=== PATIENT | male | born 1955 | race Caucasian/White ===

== ENCOUNTER 2017-10-18 07:46 | Day surgery (SDC) | payer BC ==
[2017-10-12 10:55] VITALS: BMI 31.8
[~2017-10-18 07:46] MED LIST: LACTATED RINGERS 1,000 ML IV SCH; LIDOCAINE 1% 20 ML VIAL (10MG/ML) FOR IV START INTRADERMA PRN; SODIUM CHLORIDE 0.9% 1,000 ML IV SCH; ceFAZolin 1,000 MG in SODIUM CHLORIDE 0.9% IRRIGATIO 250 ML IRRIGATION ONE; ceFAZolin IN SWFI 2 GM/20 ML SYRINGE IVP ONE
[2017-10-18 09:06] LABS: Glucose,Whole Blood 106 mg/dL (75-99)
[2017-10-18] MEDS ORDERED: PROPOFOL 10 MG/ML 20 ML VIAL IV ONE (09:46)
[2017-10-18] MEDS ORDERED: fentaNYL (PF) 50 MCG/ML 2 ML AMP ONE (09:46)
[2017-10-18] MEDS ORDERED: MIDAZOLAM 2 MG/2 ML VIAL ONE (09:46)
[2017-10-18] MEDS ORDERED: LIDOCAINE 1% INJ 10MG/ML (20 ML MDV) ONE ×3 (09:46→10:11)
[2017-10-18] MEDS ORDERED: SODIUM CHLORIDE 0.9% 500 ML IV ONE (10:01)
[2017-10-18] MEDS ORDERED: ceFAZolin IN SWFI 2 GM/20 ML SYRINGE IVP ONE (10:17)
[2017-10-18] MEDS ORDERED: LIDOCAINE 1% INJ 10MG/ML (20 ML MDV) SQ ONE (10:27)
[2017-10-18] MEDS ORDERED: HYDROcodone/APAP 5-325MG 1 EACH TAB PO PRN (11:22)
[2017-10-18] MEDS ORDERED: ACETAMINOPHEN TAB 325 MG TAB PO PRN (11:22)
--- NOTE | 2017-10-18 12:06 | CE ---
CARDIAC ELECTROPHYSIOLOGY REPORT Mr. Lewis is a 62-year-old male patient with a history of ischemic cardiomyopathy and class 2 heart failure, ventricular tachycardia, left bundle branch block who has a biventricular ICD implanted. He has class 2 CHF. His biventricular ICD is at [facility] and he was brought in for an ICD generator change. Patient was brought to the EP lab in a fasting state. Written informed consent was obtained prior to the procedure. The left shoulder area was prepped and draped as per protocol and 1% lidocaine used for local anesthesia. A 4 cm incision was made over the generator and carried down to the level of the generator. The generator was explanted and a new generator was implanted leads were interrogated. The explanted generator was a [employer] model #3231-40, serial #[id number]. The new generator implanted was a [employer] model #TH2655-09X, serial #[id number]. The leads were interrogated and functioning normally. DFT testing was performed. This DC shock was used to induce ventricular fibrillation. This was adequately and appropriately detected at least sensitivity and successfully internally defibrillated with a 20 joule shock. A 10 joule shock was unsuccessful. Charge time 1.6 seconds. Shock impedance 76 ohms. No post shock noise. The device was then programmed to biventricular pacing with short AV delay with MADIT- RIT programming. RESULTS: 1. Successful biventricular ICD generator change. 2. DFT at 20 joules, , SVC off. MMODL / IJN: [id number] /
[2017-10-18] MEDS ORDERED: ACETAMINOPHEN IV (For NPO) 1,000 MG in EMPTY BAG 1 BAG IVPB ONE (15:30)
[2017-10-18] MEDS: ceFAZolin IN SWFI 2 GM/20 ML SYRINGE IVP SCH ×2 (16:48→21:08)
[2017-10-18 17:29] LABS: Glucose,Whole Blood 95 mg/dL (75-99)
[2017-10-18] MEDS: metFORMIN 500 MG TAB PO SCH (18:40)
[2017-10-18] MEDS: CARVEDILOL 12.5 MG TAB PO SCH (18:40)
[2017-10-18 19:38] VITALS: RESP 16
[2017-10-18 20:04] LABS: Glucose,Whole Blood 119 mg/dL (75-99)
[2017-10-18] MEDS ORDERED: ATORVASTATIN 20 MG TAB PO SCH (21:00)
[2017-10-18] MEDS: SACUBITRIL/VALSARTAN 49 MG-51 MG TABLET PO SCH (21:07)
[2017-10-19] MEDS: ceFAZolin IN SWFI 2 GM/20 ML SYRINGE IVP SCH ×2 (03:24→10:20)
[2017-10-19 06:38] LABS: Glucose,Whole Blood 105 mg/dL (75-99)
[2017-10-19 07:47] VITALS: BP 123/75; PULSE 69; TEMP 98.3
[2017-10-19] MEDS: SACUBITRIL/VALSARTAN 49 MG-51 MG TABLET PO SCH (07:55)
[2017-10-19] MEDS: CARVEDILOL 12.5 MG TAB PO SCH (07:55)
[2017-10-19] MEDS: metFORMIN 500 MG TAB PO SCH (07:55)
--- NOTE | 2017-10-19 08:06 | P.DS ---
Providers Attending physician: Desean Tapia Primary care physician: Awilda Nadir [facility] Course: Patient is doing well denies any chest discomfort palpitations dizziness lightheadedness. Minimal soakage in the dressing status post biventricular ICD generator change Is afebrile 98.3F pulse rate is in the 60s and 70s blood pressure 123/75 mmHg Heart sounds are normal normal S1 normal S2 no murmurs no gallops no rub Abdomen soft Chest examination auscultation is normal no edema in the lower extremity Impression Sepsis protocol has degenerative change for normal battery depletion Underlying left bundle branch block ischemic cardio myopathy class II CHF Plan is to discharge home after completion of IV antibiotics and follow-up in the office in 5 days in the device clinic and follow-up with me in about 4 months no changes in medications Patient Condition at Discharge: Stable Plan - Discharge Summary Discharge Rx Participant: Yes New Discharge Prescriptions: Continue metFORMIN HCL [Glucophage] 500 mg PO BID Carvedilol [Coreg*] 18.75 mg PO BID Spironolactone [Aldactone] 12.5 mg PO DAILY Simvastatin [Zocor] 40 mg PO HS Aspirin 325 mg PO DAILY Sacubitril/Valsartan [Entresto 49 mg-51 mg Tablet] 1 each PO BID Discharge Medication List Aspirin 325 mg PO DAILY 09/18/14 [History] Carvedilol [Coreg*] 18.75 mg PO BID 09/18/14 [History] Simvastatin [Zocor] 40 mg PO HS 09/18/14 [History] Spironolactone [Aldactone] 12.5 mg PO DAILY 09/18/14 [History] metFORMIN HCL [Glucophage] 500 mg PO BID 09/18/14 [History] Sacubitril/Valsartan [Entresto 49 mg-51 mg Tablet] 1 each PO BID 10/12/17 [ History] Follow up Appointment(s)/Referral(s): Desean Tapia MD [STAFF PHYSICIAN] - 1 Week (ICD clinic follow-up in [address] Poe in 4 months or as previously scheduled) Activity/Diet/Wound Care/Special Instructions: PATIENT EDUCATION MATERIAL Instructions following a heart rhythm device implant. 1. Keep dressing DRY for 5 DAYS. You may cover the area with Saran or Cling Wrap, prior to a shower. 2. The dressing will be removed in the Device Clinic at [facility]. Absorbable sutures were used to close the wound. 3. Avoid raising the left arm above the shoulder level. 1 week restriction 4. Avoid arm movements, like backscratching, rubbing the head, or pulling on a cord. 2 weeks restriction 5. Gentle range of motion movements of the shoulder, closest to the incision should be performed to avoid a frozen shoulder. (Pendulum exercises of the shoulder) 6. The opposite arm may be used freely. 7. Avoid driving for 7 days. 8. Avoid activities such as golfing, swimming, weed whacking, lifting more than 10 pounds weight, bowling, gymnastics and weight training/lifting. (6 weeks restriction) 9. Activities such as wood chopping with an axe, pull-ups in the gymnasium, power lifting, arc-welding, being close to home induction cooktops will always be a problem. 10. Arm sling is only a reminder not to raise the arm above the head. You do not need to keep the arm completely immobilized. Your free to move the arm and use it and for normal activities. In case of any problems, please call [facility], Amanda Dong, @ [phone], Attention: Device Clinic Device clinic follow-up in 5 days Follow-up with Dr. Poe in 4 months Discharge home after completion of IV antibiotics Discharge Disposition: HOME SELF-CARE
[2017-10-19] MEDS ORDERED: ASPIRIN 325 MG TAB PO SCH (09:00)
[2017-10-19] MEDS ORDERED: SPIRONOLACTONE 25 MG TAB PO SCH (09:00)
--- NOTE | 2017-10-19 11:31 | ECHOF ---
Referral Reason:Generator change MEASUREMENTS -------- HEIGHT: 175.3 cm WEIGHT: 98.0 kg BP: 139/80 RVIDd: 2.9 cm (< 3.3) IVSd: 1.3 cm (0.6 - 1.1) LVIDd: 5.5 cm (3.9 - 5.3) LVPWd: 1.3 cm (0.6 - 1.1) IVSs: 1.5 cm LVIDs: 3.0 cm LVPWs: 1.7 cm LA Diam: 3.4 cm (2.7 - 3.8) LAESV Index (A-L): 18.99 ml/m Ao Diam: 3.9 cm (2.0 - 3.7) AV Cusp: 2.5 cm (1.5 - 2.6) MV EXCURSION: 13.536 mm (> 18.000) MV EF SLOPE: 67 mm/s (70 - 150) EPSS: 0.7 cm MV E Tello: 0.86 m/s MV DecT: 170 ms MV A Tello: 0.74 m/s MV E/A Ratio: 1.17 AR PHT: 1000 ms RAP: 5.00 mmHg RVSP: 25.25 mmHg FINDINGS -------- Sinus rhythm. This was a technically good study. The left ventricular size is normal. There is mild concentric left ventricular hypertrophy. Overa ll left ventricular systolic function is normal with, an EF between 55 - 60 %. The right ventricle is normal in size. Normal LA size by volume 22+/-6 ml/m2. The right atrium is normal in size. Trace to mild aortic regurgitation. The mitral valve is normal. Mild tricuspid regurgitation present. Right ventricular systolic pressure is normal at < 35 mmHg. Trace/mild (physiologic) pulmonic regurgitation. The aortic root is dilated measuring 3.9cm. Normal inferior vena cava with normal inspiratory collapse consistent with estimated right atrial pre ssure of 5 mmHg. The inferior vena cava is mildly dilated. There is no pericardial effusion. CONCLUSIONS -------- 1. Sinus rhythm. 2. This was a technically good study. 3. The left ventricular size is normal. 4. There is mild concentric left ventricular hypertrophy. 5. Overall left ventricular systolic function is normal with, an EF between 55 - 60 %. 6. The right ventricle is normal in size. 7. Normal LA size by volume 22+/-6 ml/m2. 8. The right atrium is normal in size. 9. Trace to mild aortic regurgitation. 10. The mitral valve is normal. 11. Mild tricuspid regurgitation present. 12. Right ventricular systolic pressure is normal at < 35 mmHg. 13. Trace/mild (physiologic) pulmonic regurgitation. 14. The aortic root is dilated measuring 3.9cm. 15. Normal inferior vena cava with normal inspiratory collapse consistent with estimated right atrial pressure of 5 mmHg. 16. The inferior vena cava is mildly dilated. 17. There is no pericardial effusion. [employer] WORKING SUPERVISOR: Heather Archer RDCS
== END 2017-10-19 10:42 | disposition home or self-care (01) ==
LOC: CATHEP 07:46 → 3OBS 11:27 → CATHEP 10-19 10:42
PROVIDERS: ATTEND Internal Medicine Clinical Cardiac Electrophysiology
DX: I25.5 Ischemic cardiomyopathy (principal); Z45.02 Encounter for adjustment and management of automatic implantable cardiac defibrillator; I08.2 Rheumatic disorders of both aortic and tricuspid valves; I47.2 Ventricular tachycardia; I44.7 Left bundle-branch block, unspecified; I25.10 Atherosclerotic heart disease of native coronary artery without angina pectoris; I11.0 Hypertensive heart disease with heart failure; I50.9 Heart failure, unspecified; F17.210 Nicotine dependence, cigarettes, uncomplicated; I71.2 Thoracic aortic aneurysm, without rupture; E78.5 Hyperlipidemia, unspecified; E11.9 Type 2 diabetes mellitus without complications; I25.2 Old myocardial infarction; Z79.84 Long term (current) use of oral hypoglycemic drugs; Z79.82 Long term (current) use of aspirin; Z79.899 Other long term (current) drug therapy
CPT/HCPCS: 93306; 93641; 33264; C1882; J0690 ×3; J2001

== ENCOUNTER 2020-06-01 16:29 | Emergency (ER) | payer BC, MEDICARE ==
[2020-06-01] MEDS ORDERED: SODIUM CHLORIDE 0.9% 500 ML 500 ML IV ONE (16:57)
[2020-06-01] MEDS ORDERED: ACETAMINOPHEN TAB 325 MG TAB PO STA (16:57)
--- NOTE | 2020-06-01 17:10 | XR ---
EXAMINATION TYPE: XR chest 1V portable DATE OF EXAM: 06/01/2020 COMPARISON: 04/14/2010 HISTORY: Short of breath TECHNIQUE: Elvie view FINDINGS: Heart size is normal. There is slight increased interstitial density in the lower lung fiel ds. There is no heart failure. There is left axillary pacemaker. Bony thorax is intact. Thoracic aort a is atheromatous. IMPRESSION: Slight increased interstitial density in the lower lung manning. No heart failure or pulmo nary consolidation.
[2020-06-01 17:31] LABS: Basophils % (A) 1 %; Eosinophils % (A) 0 %; HCT 41.5 % (39.0-53.0); HGB 14.6 gm/dL (13.0-17.5); Lymphocytes # (A) 0.7 k/uL (1.0-4.8); Lymphocytes % (A) 21 %; MCH 28.8 pg (25.0-35.0); MCHC 35.1 g/dL (31.0-37.0); MCV 82.1 fL (80.0-100.0); Mean Platelet Volume 7.1; Monocytes # (A) 0.2 k/uL (0-1.0); Monocytes % (A) 7 %; Neutrophils # (A) 2.2 k/uL (1.3-7.7); Neutrophils % (A) 69 %; Platelet Count 127 k/uL (150-450); RBC 5.05 m/uL (4.30-5.90); RDW 13.4 % (11.5-15.5); WBC 3.2 k/uL (3.8-10.6)
[2020-06-01 17:39] LABS: ALT 18 U/L (4-49); AST 30 U/L (17-59); African American GFR (CKD) >90 (>60 ml/min/1.73 sqM); Alkaline Phosphatase 37 U/L (38-126); Anion Gap 10 mmol/L; Blood Urea Nitrogen 22 mg/dL (9-20); Calcium 8.9 mg/dL (8.4-10.2); Carbon Dioxide 26 mmol/L (22-30); Chloride 102 mmol/L (98-107); Glucose 104 mg/dL (74-99); Non-African American GFR(CKD) 84 (>60 ml/min/1.73 sqM); Potassium 4.7 mmol/L (3.5-5.1); Sodium 138 mmol/L (137-145); Total Bilirubin 0.7 mg/dL (0.2-1.3); Total Protein 7.2 g/dL (6.3-8.2)
--- NOTE | 2020-06-01 17:41 | ED ---
URI HPI - General Source: patient Mode of arrival: ambulatory Limitations: no limitations <Gavi Ruggiero - Last Filed: 06/04/20 06:18> <Karen Kimball - Last Filed: 06/05/20 07:31> - General Chief Complaint: Upper Respiratory Infection Stated Complaint: Cough, Covid+ Time Seen by Provider: 06/01/20 16:37 - History of Present Illness Initial Comments: 65-year-old male presenting today for chief complaint of cough, fatigue and body aches on and off fevers. Patient states that he has had some nasal congestion a nd upper respiratory symptoms since May 16. He states last 10 days he has had worsening symptoms he states that he has profound cough, fatigue and body aches and just feels weak all over. Patient states that he has had on-and-off fevers he states they're now low-grade. He states he is very mild shortness of breath he denies this being very significant. He denies any chest pain pressure. Deep inspiration he denies any leg or extremity swelling. He denies any history of DVT pulmonary embolism history of active cancer. Patient denies any vomiting states is occasional nausea. Upon arrival patient appears well nontoxic in no acute distress (Gavi Ruggiero) - Related Data Home Medications Medication Instructions Recorded Confirmed Simvastatin [Zocor] 40 mg PO HS 09/18/14 06/01/20 Spironolactone [Aldactone] 12.5 mg PO DAILY 09/18/14 06/01/20 carvediloL [Coreg*] 18.75 mg PO BID 09/18/14 06/01/20 metFORMIN HCL [Glucophage] 500 mg PO DAILY 09/18/14 06/01/20 Sacubitril/Valsartan [Entresto 49 1 tab PO BID 10/12/17 06/01/20 mg-51 mg Tablet] Aspirin EC [Ecotrin Low Dose] 81 mg PO DAILY 06/01/20 06/01/20 Allergies Allergy/AdvReac Type Severity Reaction Status Date / Time No Known Allergies Allergy Verified 06/01/20 17:43 Review of Systems ROS Other: All systems not noted in ROS Statement are negative. <Gavi Ruggiero - Last Filed: 06/04/20 06:18> ROS Other: All systems not noted in ROS Statement are negative. <Karen Kimball - Last Filed: 06/05/20 07:31> ROS Statement: Those systems with pertinent positive or pertinent negative responses have been documented in the HPI. Past Medical History Past Medical History: Diabetes Mellitus, Myocardial Infarction ([place]) Additional Past Medical History / Comment(s): defibrillator. Last Myocardial Infarction Date:: UNKNOWN History of Any Multi-Drug Resistant Organisms: None Reported Past Surgical History: Back Surgery, Cholecystectomy, Hernia Repair Additional Past Surgical History / Comment(s): Cardiac Defibrillator. Past Anesthesia/Blood Transfusion Reactions: No Reported Reaction Past Psychological History: No Psychological Hx Reported Smoking Status: Former smoker Past Alcohol Use History: None Reported Past Drug Use History: None Reported - Past Family History Father Family Medical History: Cancer Additional Family Medical History / Comment(s): CA NECK <Gavi Ruggiero - Last Filed: 06/04/20 06:18> General Exam Limitations: no limitations <Gavi Ruggiero - Last Filed: 06/04/20 06:18> - General Exam Comments Initial Comments: General: The patient is awake and alert, in no distress Eye: +3mm pupils are equal, round and reactive to light, extra-ocular movements are intact. No nystagmus. There is normal conjunctiva bilaterally. No signs of icterus. Ears, nose, mouth and throat: There are moist mucous membranes and no oral lesions. Neck: The neck is supple, there is no tenderness or JVD. Cardiovascular: There is a regular rate and rhythm. No murmur, rub or gallop is appreciated. Respiratory: Lungs are clear to auscultation, respirations are non-labored, breath sounds are equal. No wheezes, stridor, rales, or rhonchi. Dry cough Gastrointestinal: Soft, non-distended, non-tender abdomen without masses or organomegaly noted. There is no rebound or guarding present. Musculoskeletal: Normal ROM, no tenderness. Strength 5/5. Sensation intact. Radial pulses equal bilaterally 2+. Neurological: A&O x 3. CN II-XII intact grossly, There are no obvious motor or sensory deficits. Coordination appears grossly intact. Speech is normal. Skin: Skin is warm and dry and no rashes or lesions are noted. Psychiatric: Cooperative, appropriate mood & affect, normal judgment. (Gavi Ruggiero) Course Vital Signs 06/01/20 06/01/20 06/01/20 16:31 17:25 18:00 Temperature 98.8 F 98 F Pulse Rate 73 88 87 Respiratory 18 18 20 Rate Blood Pressure 163/78 126/69 126/69 O2 Sat by Pulse 95 94 L 96 Oximetry Medical Decision Making - Lab Data Result diagrams: 06/01/20 17:24 06/01/20 17:24 <Gavi Ruggiero - Last Filed: 06/04/20 06:18> - Lab Data Result diagrams: 06/01/20 17:24 06/01/20 17:24 <Karen Kimball - Last Filed: 06/05/20 07:31> - Medical Decision Making Labs overall stable. Pt has mild covid pneumonia. pt appears nontoxic, no respiratory distress. oxgenating well on RA. pt main complaints cough/fatigue. pt hydrated/treated symptomatically and will be discharged with PCP f/u. Over 10 days thus not monoclonal ab candidate. (Gavi Ruggiero) I was available for consultation in the emergency department. The history and physical exam were done by the midlevel provider. I was consulted for this patients care. I reviewed the case with the midlevel provider and based on their presentation of the patient, I agree with the assessment, medical decision making and plan of care as documented. Chart was dictated using [employer] dictation software. Attempts were made to correct any dictation errors however some typographical errors may persist. (Karen Kimball) - Lab Data Lab Results 06/01/20 06/01/20 06/01/20 Range/Units 16:42 17:24 17:24 WBC 3.2 L (3.8-10.6) k/uL RBC 5.05 (4.30-5.90) m/uL Hgb 14.6 (13.0-17.5) gm/dL Hct 41.5 (39.0-53.0) % MCV 82.1 (80.0-100.0) fL MCH 28.8 (25.0-35.0) pg MCHC 35.1 (31.0-37.0) g/dL RDW 13.4 (11.5-15.5) % Plt Count 127 L (150-450) k/uL MPV 7.1 Neutrophils % 69 % Lymphocytes % 21 % Monocytes % 7 % Eosinophils % 0 % Basophils % 1 % Neutrophils # 2.2 (1.3-7.7) k/uL Lymphocytes # 0.7 L (1.0-4.8) k/uL Monocytes # 0.2 (0-1.0) k/uL Eosinophils # 0.0 (0-0.7) k/uL Basophils # 0.0 (0-0.2) k/uL Sodium 138 (137-145) mmol/L Potassium 4.7 (3.5-5.1) mmol/L Chloride 102 (98-107) mmol/L Carbon Dioxide 26 (22-30) mmol/L Anion Gap 10 mmol/L BUN 22 H (9-20) mg/dL Creatinine 0.94 (0.66-1.25) mg/dL Est GFR (CKD-EPI)AfAm >90 (>60 ml/min/1.73 sqM) Est GFR (CKD-EPI)NonAf 84 (>60 ml/min/1.73 sqM) Glucose 104 H (74-99) mg/dL Calcium 8.9 (8.4-10.2) mg/dL Total Bilirubin 0.7 (0.2-1.3) mg/dL AST 30 (17-59) U/L ALT 18 (4-49) U/L Alkaline Phosphatase 37 L (38-126) U/L Total Protein 7.2 (6.3-8.2) g/dL Albumin 4.0 (3.5-5.0) g/dL Coronavirus (PCR) Detected A (Not Detectd) Disposition Is patient prescribed a controlled substance at d/c from ED?: No Time of Disposition: 17:41 <Gavi Ruggiero - Last Filed: 06/04/20 06:18> <Karen Kimball - Last Filed: 06/05/20 07:31> Clinical Impression: Cough, Dyspnea, COVID-19 Disposition: HOME SELF-CARE Condition: Good Instructions (If sedation given, give patient instructions): Coronavirus Disease 2019 (COVID-19) Additional Instructions: Please use medication as discussed. Please follow-up with family doctor in the next 2 days. Please return to emergency room if the symptoms increase or worsen or for any other concerns. Referrals: Awilda Schmitz MD [Primary Care Provider] - 1-2 days
[2020-06-01 18:07] VITALS: BP 126/69; PULSE 87; RESP 20; TEMP 98
== END 2020-06-01 18:07 | disposition home or self-care (01) ==
LOC: EC 16:29
DX: U07.1 COVID-19 (principal); E11.9 Type 2 diabetes mellitus without complications; I25.2 Old myocardial infarction; Z90.49 Acquired absence of other specified parts of digestive tract; Z87.891 Personal history of nicotine dependence; Z79.84 Long term (current) use of oral hypoglycemic drugs
CPT/HCPCS: 36415; 71045; 80053; 85025; 87635; 93005; 96360; 99284

== ENCOUNTER → 2022-10-06 | Outpatient (CLI) | payer MEDICARE ==
--- NOTE | 2022-10-07 07:30 | XR ---
EXAMINATION TYPE: XR shoulder complete LT DATE OF EXAM: 10/06/2022 CLINICAL HISTORY: pain COMPARISON: NONE TECHNIQUE: Three views of the left shoulder are obtained. FINDINGS: There is no acute fracture/dislocation evident. The acromioclavicular and glenohumeral jeromy int spaces appear within normal limits. The visualized ribs are intact and unremarkable. IMPRESSION: 1. There is no acute fracture or dislocation. ICD 10 NO FRACTURE, INITIAL EVALUATION
== END | disposition home or self-care (01) ==
LOC: RADXRYALE 16:25
PROVIDERS: ATTEND Internal Medicine
DX: M25.512 Pain in left shoulder (principal)

== ENCOUNTER 2023-03-21 12:22 | Emergency (ER) | payer MEDICARE ==
[2023-03-21 12:42] VITALS: TEMP 98
[2023-03-21 13:00] LABS: Basophils % (A) 1 %; Eosinophils # (A) 0.1 k/uL (0-0.7); Eosinophils % (A) 2 %; HCT 39.6 % (39.0-53.0); HGB 13.7 gm/dL (13.0-17.5); Lymphocytes % (A) 20 %; MCH 29.4 pg (25.0-35.0); MCHC 34.5 g/dL (31.0-37.0); Mean Platelet Volume 7.9; Monocytes # (A) 0.4 k/uL (0-1.0); Monocytes % (A) 8 %; Neutrophils # (A) 3.5 k/uL (1.3-7.7); Neutrophils % (A) 68 %; Platelet Count 135 k/uL (150-450); RBC 4.66 m/uL (4.30-5.90); RDW 13.8 % (11.5-15.5); WBC 5.1 k/uL (3.8-10.6)
[2023-03-21 13:07] LABS: Appearance,Urine Clear (Clear); Bilirubin,Urine Negative (Negative); Blood,Urine Negative (Negative); Color,Urine Colorless; Glucose,Urine (UA) Negative (Negative); Ketones,Urine Negative (Negative); Leukocyte Esterase,Urine Negative (Negative); Nitrite,Urine Negative (Negative); Protein,Urine Negative (Negative); Specific Gravity,Urine 1.007 (1.001-1.035); Urobilinogen,Urine <2.0 mg/dL (<2.0)
--- NOTE | 2023-03-21 13:08 | XR ---
EXAMINATION TYPE: XR chest 2V DATE OF EXAM: 03/21/2023 1:04 PM CLINICAL INDICATION:Male, 68 years old with history of Chest Pain; COMPARISON: Chest radiographs from 06/01/2020. TECHNIQUE: XR chest 2V Frontal and lateral views of the chest. FINDINGS: Lungs/Pleura: There is no evidence of pleural effusion, focal consolidation, or pneumothorax. Pulmonary vascularity: Unremarkable. Heart/mediastinum: Cardiomediastinal silhouette is enlarged and stable. Atherosclerotic calcificatio ns are seen in the aorta. Three lead cardiac conduction device overlying the left hemithorax with barbara d tips projecting over the right ventricle, right atrium and coronary sinus. Musculoskeletal: No acute osseous pathology. Other findings: Right upper quadrant cholecystectomy clips. IMPRESSION: No acute cardiopulmonary disease/process.
[2023-03-21] MEDS ORDERED: NITROGLYCERIN OINT 1 INCH/GM PACKET TOPICAL STA (13:09)
[2023-03-21] MEDS ORDERED: ASPIRIN 81 MG PO STA (13:09)
[2023-03-21 13:14] LABS: ALT 17 U/L (4-49); AST 22 U/L (17-59); African American GFR (CKD) >90 (>60 ml/min/1.73 sqM); Albumin 4.2 g/dL (3.5-5.0); Alkaline Phosphatase 37 U/L (38-126); Anion Gap 7 mmol/L; Blood Urea Nitrogen 20 mg/dL (9-20); Calcium 9.1 mg/dL (8.4-10.2); Carbon Dioxide 23 mmol/L (22-30); Chloride 110 mmol/L (98-107); Glucose 94 mg/dL (74-99); Magnesium 1.8 mg/dL (1.6-2.3); Non-African American GFR(CKD) >90 (>60 ml/min/1.73 sqM); Potassium 4.5 mmol/L (3.5-5.1); Sodium 140 mmol/L (137-145); Total Bilirubin 0.7 mg/dL (0.2-1.3); Total Protein 7.1 g/dL (6.3-8.2)
[2023-03-21 13:18] LABS: INR 1.1 (<1.2); Partial Thromboplastin Time 24.1 sec (22.0-30.0); Prothrombin Time 12.1 sec (10.0-12.5)
--- NOTE | 2023-03-21 13:32 | ED ---
General Adult HPI - General Chief complaint: Chest Pain Stated complaint: Chest Pain Time Seen by Provider: 03/21/23 12:40 Source: patient, RN notes reviewed, old records reviewed Mode of arrival: ambulatory Limitations: no limitations - History of Present Illness Initial comments: This is a 68-year-old male who presents to the emergency department stating that he has been having intermittent sharp chest pain on the left for about 2 weeks he states it only last for a couple of seconds and occasionally has a little bit of pressure pain in the right side but that only last for 1 to 2 seconds. Patient denies any radiation of the pain. Patient has any difficulty breathing or shortness of breath. Patient [place] any sweating episode associated with this. Patient has any weakness with this patient has any lightheadedness or dizziness. Patient is any palpitations. Patient has any recent fever chills or cough. Patient states he does have a defibrillator pacer in place patient states he has had a heart attack in the past he has no stents placed. Patient has diabetes hypertension high cholesterol. Patient currently is asymptomatic - Related Data Home Medications Medication Instructions Recorded Confirmed Simvastatin [Zocor] 40 mg PO HS 09/18/14 06/01/20 Spironolactone [Aldactone] 12.5 mg PO DAILY 09/18/14 06/01/20 carvediloL [Coreg*] 18.75 mg PO BID 09/18/14 06/01/20 metFORMIN HCL [Glucophage] 500 mg PO DAILY 09/18/14 06/01/20 Sacubitril/Valsartan [Entresto 49 1 tab PO BID 10/12/17 06/01/20 mg-51 mg Tablet] Aspirin EC [Ecotrin Low Dose] 81 mg PO DAILY 06/01/20 06/01/20 Allergies Allergy/AdvReac Type Severity Reaction Status Date / Time No Known Allergies Allergy Verified 03/21/23 12:30 Review of Systems ROS Statement: Those systems with pertinent positive or pertinent negative responses have been documented in the HPI. ROS Other: All systems not noted in ROS Statement are negative. Past Medical History Past Medical History: Diabetes Mellitus, Myocardial Infarction ([place]) Additional Past Medical History / Comment(s): defibrillator. Last Myocardial Infarction Date:: UNKNOWN History of Any Multi-Drug Resistant Organisms: None Reported Past Surgical History: Back Surgery, Cholecystectomy, Hernia Repair Additional Past Surgical History / Comment(s): Cardiac Defibrillator. Past Anesthesia/Blood Transfusion Reactions: No Reported Reaction Past Psychological History: No Psychological Hx Reported Smoking Status: Former smoker Past Alcohol Use History: None Reported Past Drug Use History: None Reported - Past Family History Father Family Medical History: Cancer Additional Family Medical History / Comment(s): CA NECK General Exam - General Exam Comments Initial Comments: GENERAL: Patient is well-developed and well-nourished. Patient is nontoxic and well- hydrated and is in no acute distress. ENT: Neck is soft and supple. No significant lymphadenopathy is noted. Oropharynx is clear. Moist mucous membranes. Neck has full range of motion without eliciting any pain. EYES: The sclera were anicteric and conjunctiva were pink and moist. Extraocular movements were intact and pupils were equal round and reactive to light. Eyelids were unremarkable. PULMONARY: Unlabored respirations. Good breath sounds bilaterally. No audible rales rhonchi or wheezing was noted. CARDIOVASCULAR: There is a regular rate and rhythm without any murmurs gallops or rubs. ABDOMEN: Soft and nontender with normal bowel sounds. SKIN: Skin is clear with no lesions or rashes and otherwise unremarkable. NEUROLOGIC: Patient is alert and oriented x3. Cranial nerves II through XII are grossly intact. Motor and sensory are also intact. Normal speech, volume and content. Symmetrical smile. MUSCULOSKELETAL: Normal extremities with adequate strength and full range of motion. No lower extremity swelling or edema. No calf tenderness. LYMPHATICS: No significant lymphadenopathy is noted PSYCHIATRIC: Normal psychiatric evaluation. Limitations: no limitations Course Vital Signs 03/21/23 03/21/23 03/21/23 12:27 12:55 13:30 Temperature 98 F Pulse Rate 76 70 68 Respiratory 20 21 19 Rate Blood Pressure 115/68 111/67 106/62 O2 Sat by Pulse 99 95 96 Oximetry Medical Decision Making - Medical Decision Making EKG is interpreted by myself. EKG shows a paced rhythm at 70 bpm IL interval 239 QRS 56 QT interval is 422 QTc is 442. Was pt. sent in by a medical professional or institution (, PA, DOCUMENTATION LIAISON, urgent care, hospital, or shelter...) When possible be specific @ -No Did you speak to anyone other than the patient for history (EMS, parent, family, police, friend...)? What history was obtained from this source @ -No Did you review nursing and triage notes (agree or disagree)? Why? @ -I reviewed and agree with nursing and triage notes Were old charts reviewed (outside hosp., previous admission, EMS record, old EKG, old radiological studies, urgent care reports/EKG's, shelter records)? Report findings @ -I reviewed prior charts and prior lab work on this patient Differential Diagnosis (chest pain, altered mental status, abdominal pain women, abdominal pain men, vaginal bleeding, weakness, fever, dyspnea, syncope, headache, dizziness, GI bleed, back pain, seizure, CVA, palpatations, mental health, musculoskeletal)? @ -Differential Chest Pain: Stable Angina, Unstable Angina, STEMI, NSTEMI Aortic Dissection, Pneumothorax, Musculoskeletal, Esophageal Spasm GERD, Cholecystitis, Pancreatitis, Zoster, this is not meant to be an all-inclusive list. EKG interpreted by me (3pts min.). @ -As above X-rays interpreted by me (1pt min.). @ -Chest x-ray shows no acute abnormality CT interpreted by me (1pt min.). @ -None done U/S interpreted by me (1pt. min.). @ -None done What testing was considered but not performed or refused? (CT, X-rays, U/S, la bs)? Why? @ -None What meds were considered but not given or refused? Why? @ -None Did you discuss the management of the patient with other professionals (professionals i.e. , PA, DOCUMENTATION LIAISON, lab, RT, psych nurse, mental health social worker, restuarant crew worker, teacher, medical laboratory technical officer, case repairer)? Give summary @ -No Was smoking cessation discussed for >3mins.? @ -No Was critical care preformed (if so, how long)? @ -No Were there social determinants of health that impacted care today? How? (Homelessness, low income, unemployed, alcoholism, drug addiction, transportation, low edu. Level, literacy, decrease access to med. care, intermediate, rehab)? @ -No Was there de-escalation of care discussed even if they declined (Discuss DNR or withdrawal of care, Hospice)? DNR status @ -No What co-morbidities impacted this encounter? (DM, HTN, Smoking, COPD, CAD, Cancer, CVA, ARF, Chemo, Hep., AIDS, mental health diagnosis, sleep apnea, morbid obesity)? @ -None Was patient admitted / discharged? Hospital course, mention meds given and route, prescriptions, significant lab abnormalities, going to OR and other pertinent info. @ -I went back into the room to discuss the results with the patient he had no chest pain currently. Patient states she has had these type of sharp pains in the past that only last 1 to 2 seconds and they typically just go away on their own but he wanted to come in and be checked out today. I did offer admission to the patient he refused and stated he would follow-up as an outpatient with cardiology Undiagnosed new problem with uncertain prognosis? @ -No Drug Therapy requiring intensive monitoring for toxicity (Heparin, Nitro, Insulin, Cardizem)? @ -No Were any procedures done? @ -No Diagnosis/symptom? @ -Atypical chest pain Acute, or Chronic, or Acute on Chronic? @ -Acute Uncomplicated (without systemic symptoms) or Complicated (systemic symptoms)? @ -Complicated Side effects of treatment? @ -No Exacerbation, Progression, or Severe Exacerbation? @ -No Poses a threat to life or bodily function? How? (Chest pain, [place], [place], pneumonia, PE, COPD, DKA, ARF, appy, cholecystitis, CVA, Diverticulitis, Homicidal, Suicidal, threat to staff... and all critical care pts) @ -No - Lab Data Result diagrams: 03/21/23 12:56 03/21/23 12:56 Lab Results 03/21/23 03/21/23 03/21/23 Range/Units 12:56 12:56 12:56 WBC 5.1 (3.8-10.6) k/uL RBC 4.66 (4.30-5.90) m/uL Hgb 13.7 (13.0-17.5) gm/dL Hct 39.6 (39.0-53.0) % MCV 85.0 (80.0-100.0) fL MCH 29.4 (25.0-35.0) pg MCHC 34.5 (31.0-37.0) g/dL RDW 13.8 (11.5-15.5) % Plt Count 135 L (150-450) k/uL MPV 7.9 Neutrophils % 68 % Lymphocytes % 20 % Monocytes % 8 % Eosinophils % 2 % Basophils % 1 % Neutrophils # 3.5 (1.3-7.7) k/uL Lymphocytes # 1.0 (1.0-4.8) k/uL Monocytes # 0.4 (0-1.0) k/uL Eosinophils # 0.1 (0-0.7) k/uL Basophils # 0.0 (0-0.2) k/uL PT 12.1 (10.0-12.5) sec INR 1.1 (<1.2) APTT 24.1 (22.0-30.0) sec D-Dimer 0.55 (<0.60) mg/L FEU Sodium 140 (137-145) mmol/L Potassium 4.5 (3.5-5.1) mmol/L Chloride 110 H (98-107) mmol/L Carbon Dioxide 23 (22-30) mmol/L Anion Gap 7 mmol/L BUN 20 (9-20) mg/dL Creatinine 0.73 (0.66-1.25) mg/dL Est GFR (CKD-EPI)AfAm >90 (>60 ml/min/1.73 sqM) Est GFR (CKD-EPI)NonAf >90 (>60 ml/min/1.73 sqM) Glucose 94 (74-99) mg/dL Calcium 9.1 (8.4-10.2) mg/dL Magnesium 1.8 (1.6-2.3) mg/dL Total Bilirubin 0.7 (0.2-1.3) mg/dL AST 22 (17-59) U/L ALT 17 (4-49) U/L Alkaline Phosphatase 37 L (38-126) U/L Troponin I (0.000-0.034) ng/mL Total Protein 7.1 (6.3-8.2) g/dL Albumin 4.2 (3.5-5.0) g/dL Urine Color Urine Appearance (Clear) Urine pH (5.0-8.0) Ur Specific [place] (1.001-1.035) Urine Protein (Negative) Urine Glucose (UA) (Negative) Urine Ketones (Negative) Urine Blood (Negative) Urine Nitrite (Negative) Urine Bilirubin (Negative) Urine Urobilinogen (<2.0) mg/dL Ur Leukocyte Esterase (Negative) 03/21/23 03/21/23 Range/Units 12:56 12:56 WBC (3.8-10.6) k/uL RBC (4.30-5.90) m/uL Hgb (13.0-17.5) gm/dL Hct (39.0-53.0) % MCV (80.0-100.0) fL MCH (25.0-35.0) pg MCHC (31.0-37.0) g/dL RDW (11.5-15.5) % Plt Count (150-450) k/uL MPV Neutrophils % % Lymphocytes % % Monocytes % % Eosinophils % % Basophils % % Neutrophils # (1.3-7.7) k/uL Lymphocytes # (1.0-4.8) k/uL Monocytes # (0-1.0) k/uL Eosinophils # (0-0.7) k/uL Basophils # (0-0.2) k/uL PT (10.0-12.5) sec INR (<1.2) APTT (22.0-30.0) sec D-Dimer (<0.60) mg/L FEU Sodium (137-145) mmol/L Potassium (3.5-5.1) mmol/L Chloride (98-107) mmol/L Carbon Dioxide (22-30) mmol/L Anion Gap mmol/L BUN (9-20) mg/dL Creatinine (0.66-1.25) mg/dL Est GFR (CKD-EPI)AfAm (>60 ml/min/1.73 sqM) Est GFR (CKD-EPI)NonAf (>60 ml/min/1.73 sqM) Glucose (74-99) mg/dL Calcium (8.4-10.2) mg/dL Magnesium (1.6-2.3) mg/dL Total Bilirubin (0.2-1.3) mg/dL AST (17-59) U/L ALT (4-49) U/L Alkaline Phosphatase (38-126) U/L Troponin I <0.012 (0.000-0.034) ng/mL Total Protein (6.3-8.2) g/dL Albumin (3.5-5.0) g/dL Urine Color Colorless Urine Appearance Clear (Clear) Urine pH 7.0 (5.0-8.0) Ur Specific [place] 1.007 (1.001-1.035) Urine Protein Negative (Negative) Urine Glucose (UA) Negative (Negative) Urine Ketones Negative (Negative) Urine Blood Negative (Negative) Urine Nitrite Negative (Negative) Urine Bilirubin Negative (Negative) Urine Urobilinogen <2.0 (<2.0) mg/dL Ur Leukocyte Esterase Negative (Negative) Disposition Clinical Impression: Atypical chest pain Disposition: HOME SELF-CARE Condition: Good Instructions (If sedation given, give patient instructions): Chest Pain (ED) Is patient prescribed a controlled substance at d/c from ED?: No Referrals: Awilda Schmitz MD [Primary Care Provider] - 1-2 days Time of Disposition: 14:08
[2023-03-21 14:39] VITALS: BP 104/64; PULSE 63; RESP 16
== END 2023-03-21 14:18 | disposition home or self-care (01) ==
LOC: EC 12:22
DX: R07.89 Other chest pain (principal); I10 Essential (primary) hypertension; I25.2 Old myocardial infarction; E11.9 Type 2 diabetes mellitus without complications; Z79.84 Long term (current) use of oral hypoglycemic drugs; Z79.82 Long term (current) use of aspirin; Z79.899 Other long term (current) drug therapy; Z87.891 Personal history of nicotine dependence; Z90.49 Acquired absence of other specified parts of digestive tract
CPT/HCPCS: 36415; 71046; 80053; 81003; 83735; 84484; 85025; 85379; 85610; 85730; 93005; 99285

== ENCOUNTER → 2024-07-23 | Outpatient (CLI) | payer MEDICARE ==
--- NOTE | 2024-07-23 10:32 | US ---
EXAMINATION TYPE: US kidneys/renal and bladder DATE OF EXAM: 07/23/2024 COMPARISON: CT 2012 CLINICAL INDICATION: Male, 69 years old with history of R31.29 HEMATURIA; Microscopic hematuria. TECHNIQUE: Grayscale imaging of the bilateral kidneys and urinary bladder: FINDINGS: EXAM MEASUREMENTS: Right Kidney: 12.8 x 5.9 x 4.9 cm Left Kidney: 12.3 x 5.6 x 5.2 cm Right Kidney: Measures slightly enlarged. *2 hyperechoic foci seen, one at the upper pole: 4 mm greatest dimension. A second hyperechoic focus seen at the mid pole: 4 mm. Left Kidney: No hydronephrosis or masses seen Bladder: *Appears anechoic. *Prostate appears heterogeneous and prominent in bladder imagin.9 x 4 .5 x 4.4 cm. Bilateral Jets seen: No, only right jet was seen during exam No hydronephrosis or solid renal masses identified. Couple nonobstructing right renal calculi identif ied. Corticomedullary differentiation is maintained bilaterally. Urinary bladder is anechoic. Only th e right ureteral jet identified during the exam. Heterogenous prominent prostate gland which indents upon the urinary bladder base. IMPRESSION: 1. No evidence for hydronephrosis. 2. Nonobstructing right renal calculi. 3. Prominent prostate gland which indents upon the urinary bladder base. [facility], , 07/23/2024 10:30 AM
== END | disposition home or self-care (01) ==
LOC: RADUSWWP 09:42
PROVIDERS: ATTEND Urology
DX: N20.0 Calculus of kidney (principal); N40.0 Benign prostatic hyperplasia without lower urinary tract symptoms; R31.29 Other microscopic hematuria
CPT/HCPCS: 76770

== ENCOUNTER 2024-08-06 11:48 | Day surgery (SDC) | payer MEDICARE ==
[2024-08-02 14:51] VITALS: BMI 30.5
[~2024-08-06 11:48] MED LIST changes: -LACTATED RINGERS 1,000 ML IV SCH; -LIDOCAINE 1% 20 ML VIAL (10MG/ML) FOR IV START INTRADERMA PRN; -SODIUM CHLORIDE 0.9% 1,000 ML IV SCH; +ceFAZolin 1 GM in SODIUM CHLORIDE 0.9% IRRIG BTL 250 ML IRRIGATION PRN; -ceFAZolin 1,000 MG in SODIUM CHLORIDE 0.9% IRRIGATIO 250 ML IRRIGATION ONE; -ceFAZolin IN SWFI 2 GM/20 ML SYRINGE IVP ONE
[2024-08-06] MEDS: IV FLUID CONTINUATION 1,000 ML IV ONE (12:33)
[2024-08-06] MEDS: SODIUM CHLORIDE 0.9% 1,000 ML IV SCH (12:56)
[2024-08-06 12:58] LABS: Glucose,Whole Blood 95 mg/dL (70-110)
[2024-08-06] MEDS: VANCOMYCIN 1,500 MG in SODIUM CHLORIDE 0.9% 500 ML 500 ML IVPB ONE (13:22)
[2024-08-06] MEDS ORDERED: fentaNYL (PF) 50 MCG/ML 2 ML AMP ONE (14:34)
[2024-08-06] MEDS ORDERED: MIDAZOLAM 2 MG/2 ML VIAL ONE (14:34)
[2024-08-06] MEDS ORDERED: ACETAMINOPHEN TAB 325 MG TAB PO PRN (16:39)
--- NOTE | 2024-08-06 16:49 | P.EPPROC ---
- EP Procedure Note Electrophysiology Procedure Note: Diagnosis Cardiomyopathy, chronic, nonischemic Congestive heart failure [place] [employer] class class II Wide QRS left bundle 198 ms On guide line directed medical treatment for greater than 3 months With biventricular pacing left ventricular systolic function has improved to 30% with improvement in heart failure symptoms Device is at TRE, normal battery depletion, awaiting generator change Procedure: Biventricular ICD generator change Result: Successful biventricular ICD generator change, Carroll [place] heart failure biventricular ICD Atrial lead: Minimal insulation break. Repaired with silicone and tubing. P waves 3 mV, pacing impedance stable at 440 ohms, pacing threshold 1 V at 0.5 ms RV ICD lead: R waves 8.3 mV, pacing impedance 360 ohms and pacing threshold 1.1 V at 0.5 ms High-voltage impedance 52 ohms Left ventricular lead: Impedance 1625 ohms. LV tip-RV coil: Pacing threshold 2.6 V at 0.5 ms LV ring -RV coil 2.3 V at 0.5 ms Procedure details: Patient was brought to the EP lab in a fasting state. Written informed consent was obtained prior to the procedure. Options, pros and cons, benefits and risks and complications discussed with patient in detail prior to the procedure (shared decision making) previously. Importance of continuing medical treatment emphasized previously. Alternatives discussed previously. Intravenous vancomycin administered The left pectoral area was prepped and draped as a protocol. IV antibiotics administered 1% lidocaine was used for local anesthesia. A 4 cm incision was made parallel to the deltopectoral groove, about 1.5 cm medial to it. The incision was carried down to the level of the pectoralis muscle and the subfascial pocket accessed. Hemostasis was assured. Minimal dehiscence of the atrial lead insulation was noted. This was repaired with silicone. The tubing was applied and secured. The leads were connected to the new generator after explanting the old generator Leads secured to the underlying pectoral muscle after removing sheaths . Pocket irrigated with antibiotic solution. Antibiotic pouch placed Leads connected to the biventricular ICD generator. Wound closed in 3 layers and dressed per protocol Biventricular ICD interrogated and programmed. Appropriate pacing parameters, antitachycardia therapies with antitachycardia pacing cardioversion defibrillations programmed. AV delay and biventricular pacing parameters programmed to achieve optimal physiologic pacing Patient tolerated the procedure well without any acute complications. See scanned device report in EMR for lead details Since the thresholds were somewhat better with elevating-RV coil at 2.3 V at 0.5 ms, biventricular pacing was changed In addition an LV offset of 80 ms resulted in the most rapid activation in lead I and V6 Time to peak activation in lead V6 was 67 ms Time to peak activation in lead I was 50 ms LV offset of 80 ms was programmed for biventricular pacing
[2024-08-06] MEDS: ACETAMINOPHEN IV (For NPO) 1,000 MG in EMPTY BAG 1 BAG IVPB ONE (17:17)
[2024-08-06] MEDS: carvediloL 12.5 MG TAB PO SCH (17:17)
[2024-08-06] MEDS: VANCOMYCIN IV PER PHARMACY 1 EACH MISC MISCELLANE STA (17:39)
[2024-08-06 20:55] VITALS: RESP 16; TEMP 97.1
[2024-08-06] MEDS: SACUBITRIL/VALSARTAN 24 MG-26 MG TABLET PO SCH (21:37)
[2024-08-06] MEDS: SACUBITRIL/VALSARTAN 49 MG-51 MG TABLET PO SCH (21:37)
[2024-08-06 21:51] VITALS: BP 137/69; PULSE 63
[2024-08-07] MEDS ORDERED: ASPIRIN 81 MG PO SCH (09:00)
[2024-08-07] MEDS ORDERED: SPIRONOLACTONE 25 MG TAB PO SCH (09:00)
[2024-08-07] MEDS ORDERED: ZINC SULFATE 220 MG CAP PO SCH (09:00)
[2024-08-07] MEDS ORDERED: metFORMIN 500 MG TAB PO SCH (09:00)
[2024-08-07] MEDS ORDERED: ATORVASTATIN 80 MG TAB PO SCH (09:00)
== END 2024-08-06 21:58 | disposition home or self-care (01) ==
LOC: CATHEP 11:48 → 6NMEDSUR 16:39 → CATHEP 21:58
PROVIDERS: ATTEND Internal Medicine Clinical Cardiac Electrophysiology
DX: I50.42 Chronic combined systolic (congestive) and diastolic (congestive) heart failure (principal); I42.8 Other cardiomyopathies; Z45.02 Encounter for adjustment and management of automatic implantable cardiac defibrillator; I50.9 Heart failure, unspecified; I25.10 Atherosclerotic heart disease of native coronary artery without angina pectoris; I65.23 Occlusion and stenosis of bilateral carotid arteries; E11.9 Type 2 diabetes mellitus without complications; I10 Essential (primary) hypertension; E78.5 Hyperlipidemia, unspecified; Z95.5 Presence of coronary angioplasty implant and graft; Z79.84 Long term (current) use of oral hypoglycemic drugs
CPT/HCPCS: 33264; C1882; J2250; J3370; J0690; J3010; J0131